=== PATIENT | female | born 1970 | race Caucasian/White ===

== ENCOUNTER 2016-09-01 21:07 | Inpatient (IN) | payer OTHER ==
[2016-09-01] MEDS ORDERED: FAMOTIDINE 20 MG/50 ML IVPB 50 ML IVPB ONE ×2 (21:41→22:23)
[2016-09-01] MEDS ORDERED: ONDANSETRON 4 MG/2 ML VIAL IVPB ONE (21:41)
[2016-09-01] MEDS ORDERED: SODIUM CHLORIDE 1,000 ML IV STA ×2 (21:41→21:43)
--- NOTE | 2016-09-01 21:44 | PDOC ---
History of Present Illness - General History Source: Patient Exam Limitations: No Limitations - History of Present Illness Initial Comments: 09/01/16 22:09 The patient is a 46 year old female with significant past medical history of asthma and hypertension who presents to the ED with more than 1 week of abdominal pain, nausea, vomiting, and diarrhea. Patient reports she had gastric bypass surgery last month and since then she has not been eating very well. She states over the past week she developed diffuse abdominal pain with nausea, nonbloody vomiting and nonbloody/nonbilious diarrhea. She also has complaints of generalized malaise and body aches. Patient admits to sick contacts, but denies any recent travels. The patient denies fever, chills, cough, SOB, chest pain, and palpitations. The patient denies dysuria, hematuria, urgency, and frequency. Allergies: ciprofloxacin, ciprofloxacin HCl, Penicillins Social History: No alcohol, tobacco, or drug use reported. Past Surgical History: Cholecystectomy, gastric bypass PCP: Dr. Jeromy Apodaca <Laura Myles - Last Filed: 09/02/16 00:29> - General History Source: Patient <JohnyHerman deleon - Last Filed: 09/02/16 06:08> - General Chief Complaint: Diarrhea Stated Complaint: BODYACHES/HEADACHE Time Seen by Provider: 09/01/16 21:41 Past History <Laura Myles - Last Filed: 09/02/16 00:29> - Past Medical History Asthma: Yes HTN: Yes Thyroid Disease: Yes - Surgical History Cholecystectomy: Yes - Immunization History Immunization Up to Date: Yes - Psycho/Social/Smoking Cessation Hx Anxiety: No Suicidal Ideation: No Smoking Status: No Smoking History: Never smoked Number of Cigarettes Smoked Daily: 0 Hx Alcohol Use: No Drug/Substance Use Hx: No <Herman Henry - Last Filed: 09/02/16 06:08> - Past Medical History Allergies/Adverse Reactions: Allergies Allergy/AdvReac Type Severity Reaction Status Date / Time ciprofloxacin [From Cipro] Allergy Rash Verified 09/01/16 21:24 ciprofloxacin HCl Allergy Rash Verified 09/01/16 21:24 [From Cipro] Penicillins Allergy Rash Verified 09/01/16 21:24 raw vegetable Allergy Verified 09/01/16 21:24 shrimp Allergy Verified 09/01/16 21:24 nuts Allergy Uncoded 09/01/16 21:24 raw fruits Allergy Uncoded 09/01/16 21:24 Home Medications: Ambulatory Orders Levothyroxine [Synthroid] 50 mcg PO DAILY 04/06/12 Lisinopril/Hydrochlorothiazide [Lisinopril-Hctz 20-12.5 mg Tab] 1 each PO DAILY 04/06/12 Roflumilast [Daliresp] 500 mcg PO DAILY 04/06/12 Tramadol HCl [Ultram] 50 mg PO Q6H #20 tablet 04/06/12 Review of Systems - Review of Systems Able to Perform ROS?: Yes Comments:: 09/01/16 22:09 CONSTITUTIONAL: +malaise Absent: fever, no chills, no fatigue EYES: Absent: visual changes ENT: Absent: ear pain, no sore throat CARDIOVASCULAR: Absent: chest pain, no palpitations RESPIRATORY: Absent: cough, no SOB GI: +abdominal pain, nausea, vomiting, diarrhea Absent: no constipation GENITOURINARY: Absent: dysuria, no frequency, no hematuria MUSKULOSKELETAL: +body aches Absent: back pain, no arthralgia SKIN: Absent: rash NEURO: Absent: headache <Laura Myles - Last Filed: 09/02/16 00:29> *Physical Exam - Vital Signs Last Vital Signs Temp Pulse Resp BP Pulse Ox 98.5 F 91 H 20 135/78 100 09/01/16 21:25 09/01/16 21:25 09/01/16 21:25 09/01/16 21:25 09/01/16 21:25 - Physical Exam Comments: 09/01/16 22:09 GENERAL: Well-appearing, well-nourished. Mild distress. HEENT: Normocephalic, atraumatic. PERRL, EOM intact. Dry mucous membranes. CARDIOVASCULAR: Normal S1, S2. Regular rate and rhythm. PULMONARY: Clear to auscultation bilaterally. ABDOMEN: Soft, non-distended, mild abdominal tender. EXTREMITIES: Normal ROM in all four extremities. No gross deformities. SKIN: Warm, dry. No rash NEUROLOGICAL: No focal neurological deficits. <Laura Myles - Last Filed: 09/02/16 00:29> - Vital Signs Last Vital Signs Temp Pulse Resp BP Pulse Ox 98.5 F 91 H 20 135/78 100 09/01/16 21:25 09/01/16 21:25 09/01/16 21:25 09/01/16 21:25 09/01/16 21:25 <Herman Henry - Last Filed: 09/02/16 06:08> Heart Score/ECG Review - ECG Impressions Comment:: 09/02/16 00:05 NSR @81bpm Possible left atrial enlargement Nonspecific T wave abnormality Abnormal ECG <Laura Myles - Last Filed: 09/02/16 00:29> ED Treatment Course - LABORATORY CBC & Chemistry Diagram: 09/01/16 22:30 09/01/16 22:30 <Laura Myles - Last Filed: 09/02/16 00:29> - LABORATORY CBC & Chemistry Diagram: 09/01/16 22:30 09/01/16 22:30 <Herman Henry - Last Filed: 09/02/16 06:08> Medical Decision Making - Medical Decision Making 09/01/16 23:[address] Iona Mendez (via answering service) at 23:32, 23:51, 24:29 Awaiting call back Patient's case was discussed with Dr. Mendez at 24:29 <Laura Myles - Last Filed: 09/02/16 00:29> - Medical Decision Making 09/02/16 06:01 Dr. Henry: The scribe's documentation has been prepared under my direction and personally reviewed by me in its entirery. I confirm that the note above accurately reflects all work, treatment, procedures, and medical decision making performed by me. Pt admitted for Hypokalemia due to diarrhea. Pt s/p gastric bypass surgery. <Herman Henry - Last Filed: 09/02/16 06:08> *DC/Admit/Observation/Transfer - Attestations Scribe Attestion: 09/01/16 22:10 Documentation prepared by Laura Myles, acting as medical apparatus model maker for Herman Henry MD <Laura Myles - Last Filed: 09/02/16 00:29> - Discharge Dispostion Admit: Yes <Herman Henry - Last Filed: 09/02/16 06:08> Diagnosis at time of Disposition: Hypokalemia Diarrhea Qualifiers: Diarrhea type: unspecified type Qualified Code(s): R19.7 - Diarrhea, unspecified - Discharge Dispostion Condition at time of disposition: Stable - Referrals
[2016-09-01 22:40] LABS: BASOPHIL 0.6 % (0-2.0); EOSINOPHIL 1.5 % (0-4.5); MCH 26.5 pg (25.7-33.7); MEAN CELL VOLUME 82.8 fl (80-96); PLATELET COUNT 276 K/MM3 (134-434); RDW 15.4 % (11.6-15.6); WHITE BLOOD COUNT 7.3 K/mm3 (4.0-10.0)
[2016-09-01 23:05] LABS: ALBUMIN 3.5 g/dl (3.4-5.0); ANION GAP 11 (8-16); BILIRUBIN,TOTAL 0.6 mg/dL (0.2-1.0); CALCIUM 9.1 mg/dL (8.5-10.1); CO2 22 mmol/L (21-32); CREATININE 0.9 mg/dL (0.55-1.02); GLUCOSE,RANDOM 107 mg/dL (74-106); SGOT/AST 30 U/L (15-37); SGPT/ALT 77 U/L (12-78); TOT PROT 7.5 g/dl (6.4-8.2)
[2016-09-01 23:06] LABS: ALK PHOS 94 U/L (45-117)
[2016-09-01] MEDS ORDERED: POTASSIUM CHLORIDE TABS 20 MEQ TABLET.ER (FP) PO ONE ×2 (23:20→23:22)
[2016-09-01] MEDS ORDERED: KCL 10 MEQ IVPB 100 ML IVPB ONE (23:22)
[2016-09-01] MEDS ORDERED: KCL 10 MEQ IVPB 100 ML IVPB SCH (23:30)
[2016-09-02] MEDS ORDERED: traMADol HCL 50 MG TABLET PO PRN (02:06)
[2016-09-02] MEDS ORDERED: ONDANSETRON 4 MG/2 ML VIAL IVPB PRN (02:07)
[2016-09-02] MEDS: DEXTROSE 5%-0.45% SALINE 1,000 ML IV SCH (02:55)
[2016-09-02] MEDS: LEVOTHYROXINE NA 50 MCG TABLET (FP) PO SCH (06:22)
[2016-09-02 06:48] LABS: MCH 27.9 pg (25.7-33.7); MCHC 33.6 g/dl (32.0-36.0); MEAN CELL VOLUME 83.1 fl (80-96); MEAN PLT VOLUME 10.1 fl (7.5-11.1); PLATELET COUNT 230 K/MM3 (134-434); RDW 15.4 % (11.6-15.6); WHITE BLOOD COUNT 5.8 K/mm3 (4.0-10.0)
[2016-09-02 07:26] LABS: ALBUMIN 2.8 g/dl (3.4-5.0); ALK PHOS 78 U/L (45-117); ANION GAP 9 (8-16); BILIRUBIN,TOTAL 0.4 mg/dL (0.2-1.0); CALCIUM 7.4 mg/dL (8.5-10.1); CO2 22 mmol/L (21-32); CREATININE 0.7 mg/dL (0.55-1.02); GLUCOSE,RANDOM 98 mg/dL (74-106); SGOT/AST 23 U/L (15-37); SGPT/ALT 63 U/L (12-78)
--- NOTE | 2016-09-02 09:35 | EKG ---
Test Reason : Blood Pressure : / mmHG Vent. Rate : 081 BPM Atrial Rate : 081 BPM P-R Int : 168 ms QRS Dur : 086 ms QT Int : 384 ms P-R-T Axes : 082 051 064 degrees QTc Int : 446 ms NORMAL SINUS RHYTHM POSSIBLE LEFT ATRIAL ENLARGEMENT NONSPECIFIC T WAVE ABNORMALITY ABNORMAL ECG NO PREVIOUS ECGS AVAILABLE Confirmed by ARMAAN BHAGAT MD ([id number]) on 09/02/2016 9:35:04 AM Referred By: Confirmed By:ARMAAN BHAGAT MD
[2016-09-02 09:37] LABS: URINE APPEARANCE CLEAR; URINE BILIRUBIN NEGATIVE (NEGATIVE); URINE COLOR LT. YELLOW; URINE GLUCOSE (UA) NEGATIVE (NEGATIVE); URINE KETONE TRACE (NEGATIVE); URINE LEUK ESTERASE NEGATIVE (NEGATIVE); URINE PROTEIN NEGATIVE (NEGATIVE); URINE UROBILINOGEN 0.2 E.U/dl E.U./dl (0.2-1.0)
[2016-09-02 10:27] LABS: URINE BLOOD 1+ (NEGATIVE); URINE NITRITE POSITIVE (NEGATIVE)
[2016-09-02] MEDS: HEPARIN NA (PORCINE) 5,000 UNITS/ML 1ML VIAL SQ SCH ×2 (10:34→21:05)
[2016-09-02] MEDS: ROFLUMILAST 500 MCG TABLET PO SCH (10:34)
[2016-09-02 10:46] LABS: URINE BACTERIA RARE /hpf (NONE SEEN); URINE MUCUS RARE; URINE RBC 2 /hpf (0-3); URINE WBC 4 /hpf (3-5)
[2016-09-02] MEDS: KCL 10 MEQ IVPB 100 ML IVPB SCH ×2 (11:27→12:53)
[2016-09-02] MEDS ORDERED: POTASSIUM CHLORIDE TABS 20 MEQ TABLET.ER (FP) PO ONE (11:30)
--- NOTE | 2016-09-02 18:27 | CONSULT ---
Consult Consult Specialty:: GI Referred by:: Dr Maciej Apodaca Reason for Consultation:: N/V/abd pain - History of Present Illness Chief Complaint: Nausea and vomiting after gastric bypass History of Present Illness: 46 F S/P gastric bypass 1 month ago in [facility] states surgery went well and there were no complications. Developed diarrhea last week that has persisted. She is having 6-7 watery BM daily. She is not experiencing pain. No blood in the stool. She had been tolerating a soft diet prior to this. 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 She has lost 30 lbs since the procedure. She is not obese and states she had the surgery to better manage her sleep apnea and asthma. - History Source History Provided By: Patient, Medical Record Limitations to Obtaining History: No Limitations - Past Medical History Pulmonary: Yes: Asthma, Sleep Apnea ...: No - Past Surgical History Past Surgical History: Yes: Bariatric Surgery - Alcohol/Substance Use Hx Alcohol Use: No - Smoking History Smoking history: Never smoked Have you smoked in the past 12 months: No Aproximately how many cigarettes per day: 0 Home Medications - Allergies Allergies/Adverse Reactions: Allergies Allergy/AdvReac Type Severity Reaction Status Date / Time ciprofloxacin [From Cipro] Allergy Rash Verified 09/01/16 21:24 ciprofloxacin HCl Allergy Rash Verified 09/01/16 21:24 [From Cipro] Penicillins Allergy Rash Verified 09/01/16 21:24 raw vegetable Allergy Verified 09/01/16 21:24 shrimp Allergy Verified 09/01/16 21:24 nuts Allergy Uncoded 09/01/16 21:24 raw fruits Allergy Uncoded 09/01/16 21:24 - Home Medications Home Medications: Ambulatory Orders Levothyroxine [Synthroid] 50 mcg PO DAILY 04/06/12 Tramadol HCl [Ultram] 50 mg PO Q6H #20 tablet 04/06/12 Dulera 200 Mcg/5 Mcg Inhaler 2 puff PO BID 09/02/16 Wellbutrin Xl 300 tablet PO DAILY 09/02/16 Physical Exam-GI Vital Signs: Vital Signs Temperature 98.3 F 09/02/16 18:11 Pulse Rate 79 09/02/16 18:11 Respiratory Rate 18 09/02/16 18:11 Blood Pressure 115/56 09/02/16 18:11 O2 Sat by Pulse Oximetry (%) 95 09/02/16 09:00 Constitutional: Yes: Well Nourished, Calm Neck: Yes: Supple Cardiovascular: Yes: Regular Rate and Rhythm Respiratory: Yes: CTA Bilaterally Gastrointestinal Inspection: Yes: WNL ...Auscultate: Yes: Normoactive Bowel Sounds ...Palpate: Yes: Soft. No: Tenderness Labs: CBC, BMP 09/02/16 05:35 09/02/16 05:35 Hepatic Panel Total Bilirubin 0.4 mg/dL (0.2-1.0) D 09/02/16 05:35 AST 23 U/L (15-37) D 09/02/16 05:35 ALT 63 U/L (12-78) 09/02/16 05:35 Alkaline Phosphatase 78 U/L (45-117) 09/02/16 05:35 Albumin 2.8 g/dl (3.4-5.0) L 09/02/16 05:35 Abnormal Lab Results 09/01/16 09/01/16 09/01/16 07:20 22:30 22:30 Neutrophils % Monocytes % 15.5 H Eosinophils % Potassium 2.9 L* Chloride 110 H Random Glucose 107 H Calcium Total Protein Albumin Urine Ketones Trace H Urine Blood 1+ H 09/02/16 09/02/16 05:35 05:35 Neutrophils % 42.0 L D Monocytes % 18.0 H Eosinophils % 5.0 H D Potassium 3.0 L Chloride 114 H Random Glucose Calcium 7.4 L Total Protein 6.0 L Albumin 2.8 L Urine Ketones Urine Blood Imaging - Results Ultrasound: Report Reviewed (s/p sandip. Normal sonogram) Assessment/Plan 46 vF with above history now with diarrheal illness. Likely viral. No need for AbRx Rec: IVF, low residue lactose free diet Expect problem to resolve within 24-48 hours
--- NOTE | 2016-09-02 19:49 | HP ---
Admitting History and Physical - Primary Care Physician PCP: Iona Mendez - Admission History of Present Illness: The patient is a 46 year old female with significant past medical history of asthma and hypertension who presents to the ED with more than 1 week of abdominal pain, nausea, vomiting, and diarrhea. Patient reports she had gastric bypass surgery last month and since then she has not been eating very well. She states over the past week she developed diffuse abdominal pain with nausea, vomiting and diarrhea. - Past Medical History Cardiovascular: Yes: HTN Pulmonary: Yes: Asthma, Sleep Apnea ...: No Endocrine: Yes: Hypothyroidism - Past Surgical History Past Surgical History: Yes: Bariatric Surgery - Smoking History Smoking history: Never smoked Have you smoked in the past 12 months: No Aproximately how many cigarettes per day: 0 - Alcohol/Substance Use Hx Alcohol Use: No Home Medications - Allergies Allergies/Adverse Reactions: Allergies Allergy/AdvReac Type Severity Reaction Status Date / Time ciprofloxacin [From Cipro] Allergy Rash Verified 09/01/16 21:24 ciprofloxacin HCl Allergy Rash Verified 09/01/16 21:24 [From Cipro] Penicillins Allergy Rash Verified 09/01/16 21:24 raw vegetable Allergy Verified 09/01/16 21:24 shrimp Allergy Verified 09/01/16 21:24 nuts Allergy Uncoded 09/01/16 21:24 raw fruits Allergy Uncoded 09/01/16 21:24 - Home Medications Home Medications: Ambulatory Orders Levothyroxine [Synthroid] 50 mcg PO DAILY 04/06/12 Tramadol HCl [Ultram] 50 mg PO Q6H #20 tablet 04/06/12 Dulera 200 Mcg/5 Mcg Inhaler 2 puff PO BID 09/02/16 Wellbutrin Xl 300 tablet PO DAILY 09/02/16 Review of Systems - Review of Systems Gastrointestinal: reports: Abdominal Pain, Diarrhea, Vomiting Physical Examination Vital Signs: Vital Signs Temperature 98.3 F 09/02/16 18:11 Pulse Rate 79 09/02/16 18:11 Respiratory Rate 18 09/02/16 18:11 Blood Pressure 115/56 09/02/16 18:11 O2 Sat by Pulse Oximetry (%) 95 09/02/16 09:00 Constitutional: Yes: No Distress HENT: Yes: Atraumatic Neck: Yes: Supple Cardiovascular: Yes: Regular Rate and Rhythm Respiratory: Yes: CTA Bilaterally Gastrointestinal: Yes: Normal Bowel Sounds Extremities: Yes: WNL Neurological: Yes: Alert, Oriented Problem List - Problems (1) Diarrhea Code(s): R19.7 - DIARRHEA, UNSPECIFIED Qualifiers: Diarrhea type: unspecified type Qualified Code(s): R19.7 - Diarrhea, unspecified (2) Hypokalemia Code(s): E87.6 - HYPOKALEMIA Assessment/Plan Laboratory Tests 09/01/16 09/01/16 09/01/16 07:20 22:21 22:30 WBC 7.3 RBC 5.14 Hgb 13.6 Hct 42.6 MCV 82.8 MCHC 32.0 RDW 15.4 Plt Count 276 MPV 10.0 Neutrophils % 63.0 Lymphocytes % 19.4 Monocytes % 15.5 H Eosinophils % 1.5 Basophils % 0.6 Differential Comment Sodium Potassium Chloride Carbon Dioxide Anion Gap BUN Creatinine Creat Clearance w eGFR Random Glucose Calcium Total Bilirubin AST ALT Alkaline Phosphatase Total Protein Albumin Lipase Serum , Qual Negative Urine Color Lt. yellow Urine Appearance Clear Urine pH 6.0 Ur Specific [place] 1.025 Urine Protein Negative Urine Glucose (UA) Negative Urine Ketones Trace H Urine Blood 1+ H Urine Nitrite Positive Urine Bilirubin Negative Urine Urobilinogen 0.2 e.u/dl Ur Leukocyte Esterase Negative Urine RBC 2 Urine WBC 4 Ur Epithelial Cells Rare Urine Bacteria Rare Urine Mucus Rare 09/01/16 09/02/16 09/02/16 22:30 05:35 05:35 WBC 5.8 RBC 4.26 Hgb 11.9 D Hct 35.4 D MCV 83.1 MCHC 33.6 RDW 15.4 Plt Count 230 MPV 10.1 Neutrophils % 42.0 L D Lymphocytes % 34.0 D Monocytes % 18.0 H Eosinophils % 5.0 H D Basophils % 1.0 Differential Comment Manual diff done Sodium 143 145 Potassium 2.9 L* 3.0 L Chloride 110 H 114 H Carbon Dioxide 22 22 Anion Gap 11 9 BUN 13 8 D Creatinine 0.9 0.7 D Creat Clearance w eGFR > 60 > 60 Random Glucose 107 H 98 Calcium 9.1 7.4 L Total Bilirubin 0.6 0.4 D AST 30 23 D ALT 77 63 Alkaline Phosphatase 94 78 Total Protein 7.5 6.0 L Albumin 3.5 2.8 L Lipase 179 Serum , Qual Urine Color Urine Appearance Urine pH Ur Specific [place] Urine Protein Urine Glucose (UA) Urine Ketones Urine Blood Urine Nitrite Urine Bilirubin Urine Urobilinogen Ur Leukocyte Esterase Urine RBC Urine WBC Ur Epithelial Cells Urine Bacteria Urine Mucus 1.gastroenteritis probably viral? will check c diff , stool cx hydration 2.htn stable 3.asthma 4.hypothyroidism stable on meds
[2016-09-02] MEDS: MONTELUKAST NA 10 MG TABLET PO SCH (21:04)
[2016-09-02] MEDS: BUDESONIDE/FORMETEROL FUMARATE 80/4.5 mcg INHALER IH SCH (21:05)
[2016-09-03] MEDS: LEVOTHYROXINE NA 50 MCG TABLET (FP) PO SCH (06:26)
[2016-09-03] MEDS: DEXTROSE 5%-0.45% SALINE 1,000 ML IV SCH (06:26)
[2016-09-03 06:45] LABS: BASOPHIL 0.8 % (0-2.0); EOSINOPHIL 4.2 % (0-4.5); MCH 27.4 pg (25.7-33.7); MCHC 33.2 g/dl (32.0-36.0); MEAN CELL VOLUME 82.6 fl (80-96); MEAN PLT VOLUME 9.9 fl (7.5-11.1); PLATELET COUNT 242 K/MM3 (134-434); RDW 15.1 % (11.6-15.6)
[2016-09-03 08:27] LABS: ALBUMIN 2.9 g/dl (3.4-5.0); ALK PHOS 83 U/L (45-117); ANION GAP 9 (8-16); BILIRUBIN,TOTAL 0.6 mg/dL (0.2-1.0); CALCIUM 7.9 mg/dL (8.5-10.1); CO2 24 mmol/L (21-32); CREATININE 0.7 mg/dL (0.55-1.02); GLUCOSE,RANDOM 103 mg/dL (74-106); SGOT/AST 25 U/L (15-37); SGPT/ALT 64 U/L (12-78); THYROID STIMULATING HORMONE 0.06 uIU/ml (0.358-3.74)
[2016-09-03] MEDS: HEPARIN NA (PORCINE) 5,000 UNITS/ML 1ML VIAL SQ SCH ×2 (09:26→21:38)
[2016-09-03] MEDS: BUDESONIDE/FORMETEROL FUMARATE 80/4.5 mcg INHALER IH SCH ×2 (09:32→21:39)
[2016-09-03] MEDS: ROFLUMILAST 500 MCG TABLET PO SCH (09:32)
[2016-09-03] MEDS: POTASSIUM CHLORIDE TABS 20 MEQ TABLET.ER (FP) PO SCH ×2 (14:44→21:38)
--- NOTE | 2016-09-03 19:53 | PN ---
Progress Note, Physician History of Present Illness: feeling good - Current Medication List Current Medications: Active Medications Budesonide/Formoterol Fumarate (Symbicort 80/4.5mcg -) 2 puff IH BID [facility] Last Admin: 09/03/16 09:32 Dose: 2 puff Bupropion HCl (Wellbutrin Xl -) 300 mg PO DAILY [facility] Last Admin: 09/03/16 09:26 Dose: 300 mg Heparin Sodium (Porcine) (Heparin -) 5,000 unit SQ BID [facility] Last Admin: 09/03/16 09:26 Dose: 5,000 unit Dextrose/Sodium Chloride (D5-1/2ns -) 1,000 mls @ 75 mls/hr IV ASDIR [facility] Last Admin: 09/03/16 06:26 Dose: 75 mls/hr Levothyroxine Sodium (Synthroid -) 50 mcg PO DAILY@0700 [facility] Last Admin: 09/03/16 06:26 Dose: 50 mcg Montelukast Sodium (Singulair -) 10 mg PO HS [facility] Last Admin: 09/02/16 21:04 Dose: 10 mg Ondansetron HCl (Zofran Injection) 4 mg IVPB Q6H PRN PRN Reason: NAUSEA Potassium Chloride (K-Dur -) 40 meq PO BID [facility] Last Admin: 09/03/16 14:44 Dose: 40 meq Roflumilast (Daliresp -) 500 mcg PO DAILY [facility] Last Admin: 09/03/16 09:32 Dose: Not Given Tramadol HCl (Ultram -) 50 mg PO Q8H PRN PRN Reason: PAIN - Objective Vital Signs: Vital Signs Temperature 98.1 F 09/03/16 18:00 Pulse Rate 87 09/03/16 18:00 Respiratory Rate 18 09/03/16 18:00 Blood Pressure 107/69 09/03/16 18:00 O2 Sat by Pulse Oximetry (%) 98 09/03/16 10:00 HENT: Yes: Atraumatic Neck: Yes: Supple Cardiovascular: Yes: Regular Rate and Rhythm Respiratory: Yes: CTA Bilaterally Gastrointestinal: Yes: Normal Bowel Sounds Extremities: Yes: WNL Neurological: Yes: Alert, Oriented Labs: CBC, BMP 09/03/16 05:35 09/03/16 05:35 Problem List - Problems (1) Diarrhea Code(s): R19.7 - DIARRHEA, UNSPECIFIED Qualifiers: Diarrhea type: unspecified type Qualified Code(s): R19.7 - Diarrhea, unspecified (2) Hypokalemia Code(s): E87.6 - HYPOKALEMIA Assessment/Plan 1.gastroenteritis probably viral? doing well, tolerating food 2.htn stable 3.asthma 4.hypothyroidism stable on meds
[2016-09-03] MEDS: MONTELUKAST NA 10 MG TABLET PO SCH (21:38)
[2016-09-04] MEDS: DEXTROSE 5%-0.45% SALINE 1,000 ML IV SCH (06:24)
[2016-09-04] MEDS: LEVOTHYROXINE NA 50 MCG TABLET (FP) PO SCH (06:27)
[2016-09-04 08:45] VITALS: BMI 28.2
--- NOTE | 2016-09-04 08:45 | CONSULT ---
Consult Consult Specialty:: Nephrology Referred by:: DR Mendez Reason for Consultation:: hypokalemia - History of Present Illness Chief Complaint: Diarrhea History of Present Illness: 46 post sleeve gastrectomy now with acute viral gastroenteritis causing watery diarrhea nausea decreased intake Hypokalemic in the setting of above Getting K 40 BID K this am 3.1 eating now Diarrhea stopped - History Source History Provided By: Patient - Past Medical History Cardio/Vascular: Yes: HTN Pulmonary: Yes: Asthma, Sleep Apnea ...: No Endocrine: Yes: Hypothyroidism - Past Surgical History Past Surgical History: Yes: Bariatric Surgery Additional Surgical History: cholecystectomy - Alcohol/Substance Use Hx Alcohol Use: No History of Substance Use: reports: None - Smoking History Smoking history: Never smoked Have you smoked in the past 12 months: No Aproximately how many cigarettes per day: 0 - Social History Usual Living Arrangement: Other (home 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) Home Medications - Allergies Allergies/Adverse Reactions: Allergies Allergy/AdvReac Type Severity Reaction Status Date / Time ciprofloxacin [From Cipro] Allergy Rash Verified 09/01/16 21:24 ciprofloxacin HCl Allergy Rash Verified 09/01/16 21:24 [From Cipro] Penicillins Allergy Rash Verified 09/01/16 21:24 raw vegetable Allergy Verified 09/01/16 21:24 shrimp Allergy Verified 09/01/16 21:24 nuts Allergy Uncoded 09/01/16 21:24 raw fruits Allergy Uncoded 09/01/16 21:24 - Home Medications Home Medications: Ambulatory Orders Levothyroxine [Synthroid] 50 mcg PO DAILY 04/06/12 Tramadol HCl [Ultram] 50 mg PO Q6H #20 tablet 04/06/12 Dulera 200 Mcg/5 Mcg Inhaler 2 puff PO BID 09/02/16 Wellbutrin Xl 300 tablet PO DAILY 09/02/16 Family Disease History - Family Disease History Family History: Unremarkable Review of Systems Unable to obtain ROS, reason: feels ok now Nephrology Consult - Height Height: 5 ft 4 in - Weight Weight: 164 lb 9.6 oz - BMI Body Mass Index (BMI): 28.2 - Lab Results CBC,BMP: CBC, BMP 09/03/16 05:35 09/03/16 05:35 Anion Gap: Anion Gap Anion Gap 9 (8-16) 09/03/16 05:35 - Physical Examination Vital Signs: Vital Signs Temperature 98.1 F 09/04/16 06:00 Pulse Rate 68 09/04/16 06:00 Respiratory Rate 18 09/04/16 06:00 Blood Pressure 117/78 09/04/16 06:00 O2 Sat by Pulse Oximetry (%) 98 09/03/16 20:57 Edema: No Psychiatric: Yes: WNL Assessment/Plan 46 with a h/o sleeve gastrectomy hypokalemia related to Gi lossess Expect to improve as oral intake improves should take her 2 doses as ordered of k today DC fluids can have high k foods like bananas at home check chem next week If gets anemia in the future must check fe stores will sign off recall if needed
[2016-09-04] MEDS ORDERED: PT OWN MED DRAWER 7, Y5N ONE (09:22)
[2016-09-04] MEDS: HEPARIN NA (PORCINE) 5,000 UNITS/ML 1ML VIAL SQ SCH ×2 (09:32→22:14)
[2016-09-04] MEDS: ROFLUMILAST 500 MCG TABLET PO SCH (09:32)
[2016-09-04] MEDS: POTASSIUM CHLORIDE TABS 20 MEQ TABLET.ER (FP) PO SCH ×2 (09:32→22:13)
[2016-09-04] MEDS: BUDESONIDE/FORMETEROL FUMARATE 80/4.5 mcg INHALER IH SCH ×2 (09:36→22:14)
--- NOTE | 2016-09-04 19:35 | PN ---
Progress Note, Physician - Current Medication List Current Medications: Active Medications Budesonide/Formoterol Fumarate (Symbicort 80/4.5mcg -) 2 puff IH BID [facility] Last Admin: 09/04/16 09:36 Dose: 2 puff Bupropion HCl (Wellbutrin Xl -) 300 mg PO DAILY [facility] Last Admin: 09/04/16 09:32 Dose: 300 mg Heparin Sodium (Porcine) (Heparin -) 5,000 unit SQ BID [facility] Last Admin: 09/04/16 09:32 Dose: 5,000 unit Dextrose/Sodium Chloride (D5-1/2ns -) 1,000 mls @ 75 mls/hr IV ASDIR [facility] Last Admin: 09/04/16 06:24 Dose: Not Given Levothyroxine Sodium (Synthroid -) 50 mcg PO DAILY@0700 [facility] Last Admin: 09/04/16 06:27 Dose: 50 mcg Montelukast Sodium (Singulair -) 10 mg PO HS [facility] Last Admin: 09/03/16 21:38 Dose: 10 mg Ondansetron HCl (Zofran Injection) 4 mg IVPB Q6H PRN PRN Reason: NAUSEA Potassium Chloride (K-Dur -) 40 meq PO BID [facility] Last Admin: 09/04/16 09:32 Dose: 40 meq Roflumilast (Daliresp -) 500 mcg PO DAILY [facility] Last Admin: 09/04/16 09:32 Dose: Not Given Tramadol HCl (Ultram -) 50 mg PO Q8H PRN PRN Reason: PAIN - Objective Vital Signs: Vital Signs Temperature 98.5 F 09/04/16 16:20 Pulse Rate 76 09/04/16 16:20 Respiratory Rate 18 09/04/16 16:20 Blood Pressure 114/79 09/04/16 16:20 O2 Sat by Pulse Oximetry (%) 98 09/04/16 11:43 Labs: CBC, BMP 09/03/16 05:35 09/03/16 05:35
[2016-09-04 21:44] LABS: ALBUMIN 3.4 g/dl (3.4-5.0); ANION GAP 7 (8-16); CALCIUM 8.8 mg/dL (8.5-10.1); CO2 26 mmol/L (21-32); CREATININE 0.7 mg/dL (0.55-1.02); GLUCOSE,RANDOM 75 mg/dL (74-106); SGOT/AST 28 U/L (15-37); SGPT/ALT 73 U/L (12-78)
[2016-09-04 21:46] LABS: ALK PHOS 88 U/L (45-117); BILIRUBIN,TOTAL 0.5 mg/dL (0.2-1.0)
[2016-09-04] MEDS: MONTELUKAST NA 10 MG TABLET PO SCH (22:13)
[2016-09-05] MEDS: DEXTROSE 5%-0.45% SALINE 1,000 ML IV SCH (06:10)
[2016-09-05] MEDS: LEVOTHYROXINE NA 50 MCG TABLET (FP) PO SCH (06:10)
[2016-09-05 07:44] LABS: BASOPHIL 0.8 % (0-2.0); EOSINOPHIL 2.5 % (0-4.5); MCH 28.1 pg (25.7-33.7); MEAN CELL VOLUME 82.7 fl (80-96); MEAN PLT VOLUME 9.7 fl (7.5-11.1); NEUTROPHILS 45.1 % (42.8-82.8); PLATELET COUNT 227 K/MM3 (134-434); RDW 15.8 % (11.6-15.6); WHITE BLOOD COUNT 5.5 K/mm3 (4.0-10.0)
[2016-09-05] MEDS: HEPARIN NA (PORCINE) 5,000 UNITS/ML 1ML VIAL SQ SCH (10:13)
[2016-09-05] MEDS: POTASSIUM CHLORIDE TABS 20 MEQ TABLET.ER (FP) PO SCH (10:13)
[2016-09-05] MEDS: BUDESONIDE/FORMETEROL FUMARATE 80/4.5 mcg INHALER IH SCH (10:14)
[2016-09-05 11:10] LABS: ALBUMIN 3.2 g/dl (3.4-5.0); ALK PHOS 82 U/L (45-117); ANION GAP 5 (8-16); BILIRUBIN,TOTAL 0.7 mg/dL (0.2-1.0); CALCIUM 8.9 mg/dL (8.5-10.1); CO2 22 mmol/L (21-32); CREATININE 0.7 mg/dL (0.55-1.02); GLUCOSE,RANDOM 81 mg/dL (74-106); SGOT/AST 30 U/L (15-37); SGPT/ALT 68 U/L (12-78); TOT PROT 6.6 g/dl (6.4-8.2)
[2016-09-05 15:00] VITALS: BP 110/70; PULSE 82; TEMP 98.3
--- NOTE | 2016-09-05 17:19 | DS ---
Physical Examination Vital Signs: Vital Signs Temperature 98.3 F 09/05/16 14:00 Pulse Rate 82 09/05/16 14:00 Respiratory Rate 20 09/05/16 14:00 Blood Pressure 110/70 09/05/16 14:00 O2 Sat by Pulse Oximetry (%) 96 09/05/16 09:00 Constitutional: Yes: Well Nourished Neck: Yes: Supple Cardiovascular: Yes: WNL, Regular Rate and Rhythm Respiratory: Yes: WNL, Regular, CTA Bilaterally Gastrointestinal: Yes: WNL, Normal Bowel Sounds, Soft Labs: CBC, BMP 09/05/16 06:00 09/05/16 06:00 Discharge Summary Reason For Visit: DIARRHEA/HYPOKALEMIA Current Active Problems Diarrhea (Acute) Hypokalemia (Acute) Condition: Fair - Instructions Diet, Activity, Other Instructions: Regular diet Referrals: Jeromy Apodaca MD [Primary Care Provider] - Disposition: HOME - Home Medications Comprehensive Discharge Medication List: Ambulatory Orders Levothyroxine [Synthroid -] 50 mcg PO DAILY 04/06/12 Tramadol HCl [Ultram] 50 mg PO Q6H #20 tablet 04/06/12 Dulera 200 Mcg/5 Mcg Inhaler 2 puff PO BID 09/02/16 Wellbutrin Xl 300 tablet PO DAILY 09/02/16 Budesonide/Formeterol Fumarate [SYMBICORT 80/4.5mcg -] 2 puff IH BID inhaler Bupropion HCl [Wellbutrin Xl -] 300 mg PO DAILY tab.sr.24h 09/05/16 Montelukast Na [Singulair -] 10 mg PO HS tablet 09/05/16 Roflumilast [Daliresp -] 500 mcg PO DAILY tablet 09/05/16
== END 2016-09-05 19:08 | disposition home or self-care (01) | DRG 249 ==
LOC: JER 21:07 → INTOOBSV 23:39 → JERBED 23:39 → J4S 09-02 01:45 → OBSVTOIN 09-02 12:30
PROVIDERS: ADMIT Internal Medicine; ATTEND Internal Medicine
DX: K52.89 Other specified noninfective gastroenteritis and colitis (principal); I10 Essential (primary) hypertension; J45.909 Unspecified asthma, uncomplicated; E03.9 Hypothyroidism, unspecified; G47.39 Other sleep apnea; E87.6 Hypokalemia; Z98.84 Bariatric surgery status
CPT/HCPCS: 36415; 71020-TC; 76700-TC; 80053; 81003; 81015; 83690; 84443; 84703; 85025; 93005; 93010; 99284-25; G0378; J1644

== ENCOUNTER 2017-07-22 07:46 | Emergency (ER) | payer OTHER ==
[2017-07-22 07:52] VITALS: BP 131/72; PULSE 85; TEMP 98.3; BMI 24.0
--- NOTE | 2017-07-22 08:43 | PDOC ---
History of Present Illness - General Chief Complaint: Injury Stated Complaint: RIGHT FOOT PAIN Time Seen by Provider: 07/22/17 08:18 History Source: Patient Exam Limitations: No Limitations - History of Present Illness Initial Comments: 07/22/17 14:46 47 yr female injured her right foot 5 days ago stubbed the toes. pt has bruising to her right 4th 5th toe Past History - Past Medical History Allergies/Adverse Reactions: Allergies Allergy/AdvReac Type Severity Reaction Status Date / Time ciprofloxacin [From Cipro] Allergy Rash Verified 09/01/16 21:24 ciprofloxacin HCl Allergy Rash Verified 09/01/16 21:24 [From Cipro] Penicillins Allergy Rash Verified 09/01/16 21:24 raw vegetable Allergy Verified 09/01/16 21:24 shrimp Allergy Verified 09/01/16 21:24 nuts Allergy Uncoded 09/01/16 21:24 raw fruits Allergy Uncoded 09/01/16 21:24 Home Medications: Ambulatory Orders Tramadol HCl [Ultram] 50 mg PO Q6H #20 tablet 04/06/12 Wellbutrin Xl 300 tablet PO DAILY 09/02/16 Budesonide/Formeterol Fumarate [SYMBICORT 80/4.5mcg -] 2 puff IH BID inhaler Bupropion HCl [Wellbutrin Xl -] 300 mg PO DAILY tab.sr.24h 09/05/16 Dulera 200 Mcg/5 Mcg Inhaler 2 puff PO BID #1 09/05/16 Levothyroxine [Synthroid -] 100 mcg PO DAILY #30 09/05/16 Montelukast Na [Singulair -] 10 mg PO HS tablet 09/05/16 Roflumilast [Daliresp -] 500 mcg PO DAILY tablet 09/05/16 Anemia: No Asthma: Yes Cancer: No Cardiac Disorders: No CVA: No COPD: No CHF: No Dementia: No Diabetes: No GI Disorders: No Disorders: No HTN: Yes Hypercholesterolemia: No Liver Disease: No Seizures: No Thyroid Disease: Yes (hypo) - Surgical History Abdominal Surgery: No Appendectomy: No Cardiac Surgery: No Cholecystectomy: Yes Lung Surgery: No Neurologic Surgery: No Orthopedic Surgery: No - Immunization History Immunization Up to Date: Yes - Suicide/Smoking/Psychosocial Hx Smoking Status: No Smoking History: Never smoked Have you smoked in the past 12 months: No Number of Cigarettes Smoked Daily: 0 Information on smoking cessation initiated: No Hx Alcohol Use: No Drug/Substance Use Hx: No Substance Use Type: None Hx Substance Use Treatment: No *Physical Exam - Vital Signs Last Vital Signs Temp Pulse Resp BP Pulse Ox 98.3 F 85 17 131/72 98 07/22/17 07:50 07/22/17 07:50 07/22/17 07:50 07/22/17 07:50 07/22/17 07:50 - Physical Exam General Appearance: Yes: Nourished, Appropriately Dressed HEENT: positive: EOMI, XIMENA Extremity: positive: Normal Capillary Refill, Tender (right 5th 4th toes ), Other (bruising to the toes, nv intact neg foot swelling or deformity) Procedures - Splinting Progress: 07/22/17 14:52 hard sole shoe and gayathri tape to the right 4th and 5th toes ED Treatment Course - RADIOLOGY Radiology Studies Ordered: Category Date Time Status TOE(S) RIGHT [RAD] Stat Radiology 07/22/17 08:27 Taken Medical Decision Making - Medical Decision Making 07/22/17 14:47 cc: right fourth fifth toe injury 5 days ago pt placed ice has continued pain with some bruising pt denies numbness, is able to ambulate will xray to r/o fracture *DC/Admit/Observation/Transfer Diagnosis at time of Disposition: Injury of toe Qualifiers: Encounter type: initial encounter Laterality: right Qualified Code(s): S99.921A - Unspecified injury of right foot, initial encounter - Discharge Dispostion Disposition: HOME Condition at time of disposition: Good - Referrals Referrals: Jeromy Apodaca MD [Primary Care Provider] - Paras Walker MD [Staff Physician] - - Patient Instructions Additional Instructions: keep the toes gayathri taped for one week use the hard sole shoe at all times follow with the manager mission for follow up take motrin as needed for pain - Post Discharge Activity Forms/Work/School Notes: Back to Work
== END 2017-07-22 09:18 | disposition home or self-care (01) ==
LOC: JERFT 07:46
DX: M79.671 Pain in right foot (principal); I10 Essential (primary) hypertension; E03.9 Hypothyroidism, unspecified
CPT/HCPCS: 73660-TC; 99281-25